=== PATIENT | female | born 1935 | race Caucasian/White ===

== ENCOUNTER 2018-10-28 13:47 | Inpatient (IN) | payer OTHER ==
[~2018-10-28] VITALS: Ht 152.4 cm; Wt 72.6 kg
[2018-10-28 13:53] VITALS: BP 145/76
--- NOTE | 2018-10-28 13:55 | NUR ---
Patient ambulated to bed 9. RN evaluating patient at bedside.
[2018-10-28] MEDS ORDERED: cefTRIAXone 1,000 MG in DEXT 5% MINI-BAG PLUS 50 ML IV ONE (14:05)
--- NOTE | 2018-10-28 14:14 | NUR ---
LAB AT BEDSIDE.
--- NOTE | 2018-10-28 14:17 | NUR ---
EMT AT BEDSIDE FOR EKG.
[2018-10-28] MEDS ORDERED: cefTRIAXone 1,000 MG VIAL ONE (14:32)
[2018-10-28 14:35] LABS: BASOPHILS % (AUTO) 0.6 % (0.0-2.0); EOSINOPHILS # (AUTO) 0.2 K/uL (0-0.4); EOSINOPHILS % (AUTO) 3.5 % (0.0-4.0); HEMATOCRIT 43.1 % (36-48); HEMOGLOBIN 14.4 g/dL (12.0-16.0); LYMPHOCYTES # (AUTO) 1.6 K/uL (2.5-16.5); LYMPHOCYTES % (AUTO) 22.9 % (20.5-51.1); MEAN CORPUSCULAR HEMOGLOBIN 31 pg (27-31); MEAN CORPUSCULAR HGB CONC 34 g/dL (33-37); MEAN CORPUSCULAR VOLUME 91.1 fL (80-94); MONOCYTES # (AUTO) 0.5 K/uL (0.8-1.0); MONOCYTES % (AUTO) 7.1 % (1.7-9.3); NEUTROPHILS # (AUTO) 4.7 K/uL (1.8-7.7); NEUTROPHILS % (AUTO) 65.9 % (42.2-75.2); PLATELET COUNT (AUTO) 237 K/uL (140-450); RED BLOOD CELL COUNT(AUTO) 4.73 MIL/uL (4.20-5.40); RED CELL DISTRIBUTION WIDTH 14.1 % (11.6-13.7); WHITE BLOOD COUNT (AUTO) 7.1 K/uL (4.8-10.8)
[2018-10-28 14:46] LABS: ANION GAP 16.7 (8-16); CARBON DIOXIDE 25.8 mmol/L (21-32); CHLORIDE 103 mmol/L (98-107); GLUCOSE 99 mg/dL (74-106); POTASSIUM 3.5 mmol/L (3.5-5.1); SODIUM SERUM 142 mmol/L (136-145); UREA NITROGEN, BLOOD 20 mg/dL (7-18)
--- NOTE | 2018-10-28 14:50 | NUR ---
PT REFFERED TO ER BY DR. JOSE M Posey C/O REDNESS TO LLE. PT DENIES PAIN, FEVER, N/V. PT REPORTS BEING ADMITTED TO [facility] ([facility] APPROX. 2 WEEKS AGO AND WAS TREATED THERE FOR CELLULITIS. PT IS ALERT AND ANSWERING QUESTIONS APPROPRIATELY. DAUGHTER IS AT BEDSIDE. BED IN LOW POSITION, SIDE RAIL UP X1
[2018-10-28 14:58] LABS: APPEARANCE,URINE CLEAR (CLEAR); BILIRUBIN,URINE NEGATIVE (NEGATIVE); BLOOD, URINE NEGATIVE (NEGATIVE); COLOR,URINE YELLOW (YELLOW); LEUKOCYTE ESTERASE ,URINE NEGATIVE (NEGATIVE); NITRITE, URINE NEGATIVE (NEGATIVE); UGLUCOSE NEGATIVE (NEGATIVE)
[2018-10-28 15:01] LABS: ALBUMIN 4.1 g/dL (3.4-5.0); ASPARTATE AMINOTRANSFERASE 22 U/L (15-37); TOTAL BILIRUBIN 0.4 mg/dL (0.0-1.0)
--- NOTE | 2018-10-28 16:10 | NUR ---
DR KIRKPATRICK AT BEDSIDE
[2018-10-28] MEDS ORDERED: FLUT1POW3 IH (16:14)
[2018-10-28] MEDS ORDERED: APIX5TAB PO (16:14)
[2018-10-28] MEDS ORDERED: METO25TE2 PO (16:14)
[2018-10-28] MEDS ORDERED: VANCOMYCIN 1GM/DEXT 5% PREMIX 200 ML IV ONE (16:15)
--- NOTE | 2018-10-28 16:30 | NUR ---
CALLED PHARMACY FOR VANCOMYCIN, PER LIZ, THEY WILL BRING IT OVER
--- NOTE | 2018-10-28 17:15 | NUR ---
Patient will be admitted to care of DR KIRK. Admited to MED SURG. Will go to room 111B . Belongings list completed. Report to NAVI MERAZ.
[2018-10-28 17:20] VITALS: BP 132/60
--- NOTE | 2018-10-28 17:20 | NUR ---
RECEIVED BEDSIDE REPORT FROM AIRCRAFT LAY OUT WORKER BARTOLO. PT STABLE, AWAKE, ALERT AND ORIENTED X4. NO SIGNS OF DISTRESS NOTED. NO REDNESS, SWELLING, OR INFLAMMATION NOTED ON IV SITE. CALL VILLAGRAN WITHIN REACH. BED IN LOWEST POSITION, BED ALARM ON. SAFETY MEASURES IN PLACE. PLAN OF CARE REVIEWED. FAMILY AT THE BEDSIDE.
--- NOTE | 2018-10-28 17:40 | NUR ---
VITAL SIGNS TAKEN, PT STABLE. MRSA SWAB DONE. WILL CONTINUE TO MONITOR.
--- NOTE | 2018-10-28 19:05 | NUR ---
REPORT RECEIVED FROM AM NURSE. PT AWAKE, ALERT AND ORIENTED. PT ABLE TO VERBALIZE NEEDS. NO C/O DISTRESS. PT ON ROOM AIR, BREATHING EQUAL AND UNLABORED. PT LEFT HAND 22G INTACT. SAFETY PRECAUTIONS IN PLACE. PT ORIENTED TO CALL LIGHT. CALL LIGHT WITHIN REACH. WILL CONTINUE TO MONITOR.
--- NOTE | 2018-10-28 19:06 | NUR ---
ENDORSED PT TO RN AUGUST FOR CONTINUITY OF CARE. PT STABLE.
--- NOTE | 2018-10-28 20:05 | NUR ---
ASSISTED PT TO THE BATHROOM. PT ABLE TO AMBULATE INDEPENDENTLY WITH STEADY GAIT. PT INSTRUCTED TO DANGLE FEET AT THE EDGE OF THE BED BEFORE STANDING UP. PT INSTRUCTED TO CALL NURSE BEFORE GETTING OUT OF BED IF PT FEELS LIGHT HEADED.
--- NOTE | 2018-10-28 21:50 | NUR ---
PT BROUGHT TURKEY SANDWICH AND APPLE SAUCE PER REQUESTED.
[2018-10-28] MEDS ORDERED: ALBUTEROL 0.083% 2.5 MG/3 ML NEBU INH PRN (22:10)
[2018-10-28] MEDS ORDERED: HYDROcodone/APAP 5/325 MG 1 TAB TAB PO PRN ×2 (22:10)
[2018-10-28] MEDS ORDERED: ONDANSETRON 4 MG/2 ML VIAL IVP PRN (22:10)
[2018-10-28] MEDS ORDERED: ACETAMINOPHEN 325 MG TAB PO PRN (22:10)
[2018-10-28] MEDS ORDERED: LORazepam 2 MG/ML VIAL IVP PRN (22:10)
[2018-10-29 00:01] VITALS: BP 136/58
--- NOTE | 2018-10-29 00:05 | NUR ---
VITAL SIGNS TAKEN. PT ASKED WHEN SHE WOULD RECEIVE HER HS MEDICATION. PT STATED THAT SHE TAKES ELIQUIS IN THE MORNING AND A SECOND DOSE OF ELIQUIS WITH METROPROLOL IN THE EVENINGS. NURSE INFORMED PT THAT MEDICATIONS ARE SCHEDULED IN THE AM. PT STATED THAT SHE TOOK HER ELIQUIS AND METROPROLOL THIS MORNING AND IT WOULD BE "OKAY NOT TO TAKE TONIGHT". PT BP 136/58, HR 69 AT THIS TIME.
--- NOTE | 2018-10-29 02:35 | NUR ---
ROUNDED ON PT. PT SLEEPING IN BED. NO VISIBLE SIGNS OF DISTRESS. WILL CONTINUE TO MONITOR.
--- NOTE | 2018-10-29 05:00 | NUR ---
ROUNDED ON PT. PT SLEEPING IN BED. NO VISIBLE SIGNS OF DISTRESS. SAFETY MEASURES IN PLACE. CALL LIGHT WITHIN REACH.
[2018-10-29 06:54] LABS: BASOPHILS % (AUTO) 0.2 % (0.0-2.0); EOSINOPHILS # (AUTO) 0.3 K/uL (0-0.4); EOSINOPHILS % (AUTO) 5.3 % (0.0-4.0); HEMATOCRIT 35.8 % (36-48); HEMOGLOBIN 11.9 g/dL (12.0-16.0); LYMPHOCYTES # (AUTO) 0.8 K/uL (2.5-16.5); LYMPHOCYTES % (AUTO) 14.1 % (20.5-51.1); MEAN CORPUSCULAR HEMOGLOBIN 30 pg (27-31); MEAN CORPUSCULAR HGB CONC 33 g/dL (33-37); MEAN CORPUSCULAR VOLUME 91.2 fL (80-94); MONOCYTES # (AUTO) 0.4 K/uL (0.8-1.0); MONOCYTES % (AUTO) 6.5 % (1.7-9.3); NEUTROPHILS # (AUTO) 4.3 K/uL (1.8-7.7); NEUTROPHILS % (AUTO) 73.9 % (42.2-75.2); PLATELET COUNT (AUTO) 203 K/uL (140-450); RED BLOOD CELL COUNT(AUTO) 3.93 MIL/uL (4.20-5.40); RED CELL DISTRIBUTION WIDTH 14.1 % (11.6-13.7); WHITE BLOOD COUNT (AUTO) 5.9 K/uL (4.8-10.8)
--- NOTE | 2018-10-29 07:10 | NUR ---
ENDORSED PT TO AM NURSE. PT STABLE AT THIS TIME.
[2018-10-29 07:11] LABS: ANION GAP 12.3 (8-16); CARBON DIOXIDE 27.1 mmol/L (21-32); CHLORIDE 107 mmol/L (98-107); CREATININE 0.8 mg/dL (0.6-1.3); GLUCOSE 94 mg/dL (74-106); POTASSIUM 4.4 mmol/L (3.5-5.1); SODIUM SERUM 142 mmol/L (136-145); UREA NITROGEN, BLOOD 16 mg/dL (7-18)
--- NOTE | 2018-10-29 07:12 | NUR ---
RECEIVED BEDSIDE REPORT FROM ELECTRONICS HARDWARE DESIGN ENGINEER RN FOR CONTINUITY OF CARE. PT IN STABLE CONDITION, AOX4, COOPERATIVE AND INTERACTING APPROPRIATELY. NO C/O PAIN AND DISCOMFORT AT THIS TIME. NO S/S DISTRESS. RESPIRATIONS EVEN AND UNLABORED. CELLULITIS LLE, MANAGER SURGERY, SKIN INTACT. PT IS AMBULATORY WITHOUT ASSIST. IV SITE PATENT AND ASYMPTOMATIC, ON SL. ALL SAFETY PRECAUTIONS IN PLACE, WILL CONTINUE TO MONITOR.
[2018-10-29 08:00] VITALS: BP 143/71
[2018-10-29] MEDS: METOPROLOL SUCCINATE 50 MG TABER PO SCH ×3 (08:56→20:36)
[2018-10-29] MEDS: APIXABAN 2.5 MG TAB PO SCH ×2 (08:57→20:38)
--- NOTE | 2018-10-29 09:17 | NUR ---
ADMINISTERED SCHEDULED MEDICATIONS. ALL NEEDS MET AT THIS TIME. VERIFIED WITH PHARMACIST THAT METOPROLOL ER MAY BE CUT TO 0.5 TABLET.
--- NOTE | 2018-10-29 09:26 | NUR ---
PATIENT HAS BEEN SCREENED AND CATEGORIZED MODERATE NUTRITION RISK. PATIENT WILL BE SEEN WITHIN 3-5 DAYS OF ADMISSION. 10/30/18-11/01/[address]
--- NOTE | 2018-10-29 11:03 | NUR ---
PATIENT RESTING IN BED. ALL NEEDS MET AT THIS TIME.
[2018-10-29] MEDS ORDERED: VANCOMYCIN PER PHARMACY MC PRN (12:45)
--- NOTE | 2018-10-29 14:23 | NUR ---
PT IN BED, NO S/S DISTRESS. ALL SAFETY PRECAUTIONS IN PLACE, WILL CONTINUE TO MONITOR.
[2018-10-29 16:00] VITALS: BP 142/65
--- NOTE | 2018-10-29 17:08 | NUR ---
PT RESTING IN BED WITH DAUGHTER AT BEDSIDE. NO C/O PAIN OR DISCOMFORT.
[2018-10-29] MEDS: VANCOMYCIN 1GM/DEXT 5% PREMIX 200 ML IV SCH (17:12)
--- NOTE | 2018-10-29 19:23 | NUR ---
ENDORSED POC TO REGISTERED NURSE STEP DOWN RN. PT IN STABLE CONDITION.
--- NOTE | 2018-10-29 19:30 | NUR ---
RECEIVED BEDSIDE REPORT FROM DAY SHIFT RN, PATIENT IN BED, ON RA, V/S TAKEN ALL STABLE. IV IN LEFT HAND SL, RED AT SITE, ASKED PATIENT IF HURT PATIENT STATED IT HURTS WHEN PRESSING ON IT, TOLD PATIENT WE MAY NEED TO CHANGE IT, PATIENT REQUESTED IF CAN CHANGE IN THE MORNING IF IT CONTINUES TO HURT, EXPLAINED TO PATIENT IF WE HAVE TO CHANGE IT SHOULD BE DONE SOON POSSIBLE, PATIENT STATED OKAY MAYBE IN THE MORNING.
--- NOTE | 2018-10-29 20:30 | NUR ---
FLUSHED IV WITH 10 ML NS, PATENT, PATIENT DENIES PAIN, WILL CONTINUE TO MONITOR
--- NOTE | 2018-10-29 22:35 | NUR ---
PATIENT RESTING IN BED ON RA, STATES IV SITE FEELS BETTER NO PAIN. CALL LIGHT WITHIN REACH WILL CONTINUE TO MONITOR
[2018-10-29 23:47] VITALS: BP 145/62
--- NOTE | 2018-10-30 00:05 | NUR ---
PATIENT SITTING IN BED WATCHING TV, DENIES PAIN, CALL LIGHT WITHIN REACH WILL CONTINUE TO MONITOR
--- NOTE | 2018-10-30 01:43 | NUR ---
PATIENT SLEEPING IN BED, CALL LIGHT WITHIN REACH, WILL CONTINUE TO MONITOR
--- NOTE | 2018-10-30 04:20 | NUR ---
SLEEPING IN BED, CALL LIGHT WITHIN REACH, WILL CONTINUE TO MONITOR
--- NOTE | 2018-10-30 06:10 | NUR ---
D/C IV IN LEFT HAND, INSERTED NEW IV IN RIGHT HAND 22 G
--- NOTE | 2018-10-30 07:15 | NUR ---
ENDORSED PATIENT TO DAY SHIFT NURSE COOPER, PATIENT STABLE.
--- NOTE | 2018-10-30 07:17 | NUR ---
RECEIVED BEDSIDE REPORT FROM SOCIAL SERVICE DIRECTOR RN SUMMER FOR CONTINUITY OF CARE. PT IN STABLE CONDITION, AOX4, COOPERATIVE AND INTERACTING APPROPRIATELY. NO C/O PAIN AND DISCOMFORT AT THIS TIME. NO S/S DISTRESS. RESPIRATIONS EVEN AND UNLABORED. CELLULITIS LLE, ERYTHEMATOUS, WARM TO TOUCH, 1+ PITTING EDEMA, NASRIN, SKIN INTACT. PT IS AMBULATORY WITHOUT ASSIST. IV SITE PATENT AND ASYMPTOMATIC, ON SL. ALL SAFETY PRECAUTIONS IN PLACE, WILL CONTINUE TO MONITOR.
[2018-10-30 07:19] LABS: ANION GAP 13.4 (8-16); CARBON DIOXIDE 25.9 mmol/L (21-32); CHLORIDE 105 mmol/L (98-107); CREATININE 0.8 mg/dL (0.6-1.3); GLUCOSE 98 mg/dL (74-106); POTASSIUM 4.3 mmol/L (3.5-5.1); SODIUM SERUM 140 mmol/L (136-145)
[2018-10-30 07:21] LABS: BASOPHILS % (AUTO) 0.5 % (0.0-2.0); EOSINOPHILS # (AUTO) 0.4 K/uL (0-0.4); EOSINOPHILS % (AUTO) 7.6 % (0.0-4.0); HEMATOCRIT 35.4 % (36-48); LYMPHOCYTES # (AUTO) 1.1 K/uL (2.5-16.5); LYMPHOCYTES % (AUTO) 19.6 % (20.5-51.1); MEAN CORPUSCULAR HEMOGLOBIN 31 pg (27-31); MEAN CORPUSCULAR HGB CONC 34 g/dL (33-37); MEAN CORPUSCULAR VOLUME 90.2 fL (80-94); MONOCYTES # (AUTO) 0.5 K/uL (0.8-1.0); MONOCYTES % (AUTO) 9.4 % (1.7-9.3); NEUTROPHILS # (AUTO) 3.4 K/uL (1.8-7.7); NEUTROPHILS % (AUTO) 62.9 % (42.2-75.2); PLATELET COUNT (AUTO) 200 K/uL (140-450); RED BLOOD CELL COUNT(AUTO) 3.92 MIL/uL (4.20-5.40); WHITE BLOOD COUNT (AUTO) 5.4 K/uL (4.8-10.8)
[2018-10-30 07:39] LABS: UREA NITROGEN, BLOOD 13 mg/dL (7-18)
[2018-10-30 08:00] VITALS: BP 157/65
[2018-10-30] MEDS: METOPROLOL SUCCINATE 50 MG TABER PO SCH ×2 (09:34→20:19)
--- NOTE | 2018-10-30 09:34 | NUR ---
OBTAINED HOME MED BREO- WILL SEND TO PHARMACY.
[2018-10-30] MEDS: APIXABAN 2.5 MG TAB PO SCH ×2 (09:35→20:28)
--- NOTE | 2018-10-30 09:40 | NUR ---
SCHEDULED MEDICATIONS ADMINISTERED. ALL NEEDS MET AT THIS TIME.
--- NOTE | 2018-10-30 11:01 | NUR ---
PT SITTING IN CHAIR, ALL SAFETY PRECAUTIONS IN PLACE, WILL CONTINUE TO MONITOR.
--- NOTE | 2018-10-30 12:25 | NUR ---
PER PHARMACIST, NO PATIENT LABEL ON BREO, NEED PATIENT LABEL AND INSTRUCTIONS. INFORMED PATIENT, SHE STATES SHE WILL CALL HER DAUGHTER TO BRING IT.
--- NOTE | 2018-10-30 13:32 | NUR ---
PATIENT STATES SHE WAS ABLE TO GET IN CONTACT WITH DAUGHTER WHO WILL BRING HOME MED BREO MEDICATION LABEL. NOTIFIED PHARMACIST OF THIS.
--- NOTE | 2018-10-30 15:51 | NUR ---
PT RESTING IN BED, NO S/S DISTRESS. WILL CONTINUE TO MONITOR.
[2018-10-30 16:00] VITALS: BP 134/62
--- NOTE | 2018-10-30 16:08 | NUR ---
DAUGHTER BROUGHT HOME MED BREO'S BOX FROM HOME. GAVE BOX WITH LABEL TO PHARMACIST.
[2018-10-30] MEDS: VANCOMYCIN 1GM/DEXT 5% PREMIX 200 ML IV SCH (17:23)
--- NOTE | 2018-10-30 19:15 | NUR ---
ENDORSED POC TO OPERATIONS TEAM LEADER RN. PT IN STABLE CONDITION.
--- NOTE | 2018-10-30 19:30 | NUR ---
RECEIVED BEDSIDE REPORT FROM DAY SHIFT RN COOPER, PATIENT IN BED, ON RA, V/S STABLE, DENIES PAIN, NOTED LEFT LEG CELLULITIS, IV IN RIGHT HAND 22 G, SL DRESSING INTACT, EXPLAIN PLAN OF CARE, CALL LIGHT WITHIN REACH, WILL CONTINUE TO MONITOR
--- NOTE | 2018-10-30 20:19 | NUR ---
DUE MEDICATIONS GIVEN, EDUCATION PROVIDED REGARDING SIDE EFFECTS
--- NOTE | 2018-10-30 21:10 | NUR ---
PATIENT TOOK SHOWER, ASSISTED BACK INTO BED, CALL LIGHT WITHIN REACH
--- NOTE | 2018-10-30 23:10 | NUR ---
PATIENT ASLEEP IN BED, CALL LIGHT WITHIN REACH, WILL CONTINUE TO MONITOR
[2018-10-31] VITALS: BP 123/53
--- NOTE | 2018-10-31 00:06 | NUR ---
ASLEEP IN BED NO SIGNS OF DISTRESS, CALL LIGHT WITHIN REACH
--- NOTE | 2018-10-31 02:10 | NUR ---
PATIENT SLEEPING IN BED, CALL LIGHT WITHIN REACH
--- NOTE | 2018-10-31 03:53 | NUR ---
PATIENT ASLEEP IN BED, NO SIGNS OF DISTRESS
--- NOTE | 2018-10-31 06:04 | NUR ---
SLEEPING, CALL LIGHT WITHIN REACH
[2018-10-31 06:45] LABS: ANION GAP 12.1 (8-16); CARBON DIOXIDE 28.1 mmol/L (21-32); CHLORIDE 105 mmol/L (98-107); CREATININE 0.8 mg/dL (0.6-1.3); GLUCOSE 91 mg/dL (74-106); POTASSIUM 4.2 mmol/L (3.5-5.1); SODIUM SERUM 141 mmol/L (136-145); UREA NITROGEN, BLOOD 17 mg/dL (7-18)
[2018-10-31 06:52] LABS: BASOPHILS % (AUTO) 0.7 % (0.0-2.0); EOSINOPHILS # (AUTO) 0.4 K/uL (0-0.4); HEMATOCRIT 35.9 % (36-48); HEMOGLOBIN 12.2 g/dL (12.0-16.0); LYMPHOCYTES # (AUTO) 1.2 K/uL (2.5-16.5); LYMPHOCYTES % (AUTO) 20.9 % (20.5-51.1); MEAN CORPUSCULAR HEMOGLOBIN 31 pg (27-31); MEAN CORPUSCULAR HGB CONC 34 g/dL (33-37); MEAN CORPUSCULAR VOLUME 90.3 fL (80-94); MONOCYTES # (AUTO) 0.6 K/uL (0.8-1.0); MONOCYTES % (AUTO) 10.1 % (1.7-9.3); NEUTROPHILS # (AUTO) 3.4 K/uL (1.8-7.7); NEUTROPHILS % (AUTO) 61.3 % (42.2-75.2); PLATELET COUNT (AUTO) 197 K/uL (140-450); RED BLOOD CELL COUNT(AUTO) 3.97 MIL/uL (4.20-5.40); RED CELL DISTRIBUTION WIDTH 13.9 % (11.6-13.7); WHITE BLOOD COUNT (AUTO) 5.6 K/uL (4.8-10.8)
--- NOTE | 2018-10-31 07:10 | NUR ---
RECEIVED BED SIDE REPORT FROM PUBLIC HEALTH TEACHER RN. PT IN STABLE CONDITION. AWAKE AND ALERT X4, IN NO RESPIRATORY DISTRESS, APPEARS IN NO PAIN, SKIN INTACT, R HAND 22G SALINE LOCK. WILL CONTINUE TO MONITOR
--- NOTE | 2018-10-31 07:11 | NUR ---
RECEIVED BED SIDE REPORT FROM CYLINDER INSPECTOR AND TESTER RN SUMMER. PT AWAKE. LEFT LEG STILL RED AND WARM BUT PEDAL PULSES PRESENT AND SKIN TEMP WARM, CAP REFILL <3 SECONDS. FINE CRACKLES HEARD ON RIGHT SIDE, LEFT SIDE CLEAR. VS STABLE. PT STATED THAT SHE WALKED TO THE BATHROOM EARLIER TO VOID. WILL CONTINUE TO MONITOR
--- NOTE | 2018-10-31 07:13 | NUR ---
ENDORSED PATIENT TO DAY SHIFT NURSE, PATIENT STABLE.
[2018-10-31 08:00] VITALS: BP 141/59
[2018-10-31] MEDS ORDERED: COMMUNICATION ORDER MC SCH (09:00)
[2018-10-31] MEDS: APIXABAN 2.5 MG TAB PO SCH ×2 (09:33→21:06)
[2018-10-31] MEDS: METOPROLOL 25 MG TAB PO SCH ×2 (09:34→21:04)
[2018-10-31] MEDS: BREO ELLIPTA PO SCH (09:34)
--- NOTE | 2018-10-31 09:51 | NUR ---
GAVE PT AM MEDS. EXPLAINED WHY PT IS TAKING MEDICATIONS AND S/E OF EACH. PT VERBALIZED UNDERSTANDING. PT ABLE TO TAKE ELLIPTA ON HER OWN.
--- NOTE | 2018-10-31 11:59 | NUR ---
PT SITTING IN CHAIR READING BOOK. WILL FAX PICC LINE CONSENT FORM LATER ON
--- NOTE | 2018-10-31 15:21 | NUR ---
Skidder Lever Operator Note: I called and spoke with Investigative Agent Victoriano Price from [facility]. I informed her of MD's home health order for abx iv. She stated they have a contract with [facility], phone number . I faxed inquiry to [facility]. MD's order for specific abx iv is still pending.
[2018-10-31 16:00] VITALS: BP 140/67
[2018-10-31] MEDS: VANCOMYCIN 1GM/DEXT 5% PREMIX 200 ML IV SCH (16:25)
--- NOTE | 2018-10-31 16:32 | NUR ---
Family Consumer Science Fcs Teacher Note: Per Nivia from [facility], phone number , they can send a nurse to patient's home tomorrow. Per Italia from [facility] , patient has a co-pay of $420. Italia stated she will contact patient's daughter Shannon Doran and discuss co-pay.
--- NOTE | 2018-10-31 18:43 | NUR ---
CONSENT FORM FAXED TO AND FORM WAS SIGNED. FORM IN CHART. CALLED PICC LINE NAVI ZAPATA 2X TO INFORM HIM THAT CONSENT FORM IS SIGNED. WILL WAIT FOR CALL BACK. FAMILY AT BEDSIDE
--- NOTE | 2018-10-31 19:19 | NUR ---
GAVE BEDSIDE REPORT TO COLLEGE SPORTS COACH RN. PT IN STABLE CONDITION
--- NOTE | 2018-10-31 19:20 | NUR ---
REPORT RECEIVED FROM AM NURSE. PT IN BED, AWAKE, ALERT AND ORIENTED. ABLE TO VERBALIZE NEEDS. PT FAMILY MEMBER AT BEDSIDE. NO IV NOTED. BED IN LOW POSITION, SAFETY MEASURES IN PLACE. CALL LIGHT WITHIN REACH. WILL CONTINUE TO MONITOR.
--- NOTE | 2018-10-31 21:55 | NUR ---
TIME OUT DONE WITH PICC RN.
--- NOTE | 2018-10-31 22:10 | NUR ---
PICC LINE PLACED BY PICC RN. PT IN STABLE CONDITION. NO C/O DISCOMFORT. CALL LIGHT WITHIN REACH. WILL CONTINUE TO MONITOR.
[2018-11-01] VITALS: BP 136/65
--- NOTE | 2018-11-01 00:01 | NUR ---
VITALS TAKEN. NO C/O DISCOMFORT.
--- NOTE | 2018-11-01 02:10 | NUR ---
ROUNDED ON PT. PT SLEEPING BUT EASILY AROUSABLE. NO C/O DISCOMFORT. CALL LIGHT WITHIN REACH.
--- NOTE | 2018-11-01 04:11 | NUR ---
ROUNDED ON PT. PT SLEEPING. NO VISIBLE SIGNS OF DISTRESS. WILL CONTINUE TO MONITOR.
--- NOTE | 2018-11-01 07:02 | NUR ---
ENDORSED PT TO AM NURSE. PT STABLE AT THIS TIME.
--- NOTE | 2018-11-01 07:03 | NUR ---
RECEIVED BEDSIDE REPORT FORM MECHANICAL DESIGN DRAFTER RN, AUGUST. PATIENT SLEEPING IN BED. NO SIGNS OF DISTRESS ON RA. SAFETY PRECAUTIONS IN PLACE.
[2018-11-01 07:04] LABS: ANION GAP 10.6 (8-16); CARBON DIOXIDE 28.4 mmol/L (21-32); CHLORIDE 105 mmol/L (98-107); CREATININE 0.8 mg/dL (0.6-1.3); GLUCOSE 91 mg/dL (74-106); SODIUM SERUM 140 mmol/L (136-145); UREA NITROGEN, BLOOD 17 mg/dL (7-18)
[2018-11-01 07:23] LABS: BASOPHILS % (AUTO) 0.6 % (0.0-2.0); EOSINOPHILS # (AUTO) 0.3 K/uL (0-0.4); EOSINOPHILS % (AUTO) 5.4 % (0.0-4.0); HEMATOCRIT 37.2 % (36-48); HEMOGLOBIN 12.6 g/dL (12.0-16.0); LYMPHOCYTES # (AUTO) 1.3 K/uL (2.5-16.5); LYMPHOCYTES % (AUTO) 20.9 % (20.5-51.1); MEAN CORPUSCULAR HEMOGLOBIN 31 pg (27-31); MEAN CORPUSCULAR HGB CONC 34 g/dL (33-37); MEAN CORPUSCULAR VOLUME 90.6 fL (80-94); MONOCYTES # (AUTO) 0.5 K/uL (0.8-1.0); MONOCYTES % (AUTO) 7.9 % (1.7-9.3); NEUTROPHILS # (AUTO) 3.9 K/uL (1.8-7.7); NEUTROPHILS % (AUTO) 65.2 % (42.2-75.2); PLATELET COUNT (AUTO) 191 K/uL (140-450)
[2018-11-01 08:00] VITALS: BP 134/58
[2018-11-01] MEDS: APIXABAN 2.5 MG TAB PO SCH (09:02)
[2018-11-01] MEDS: METOPROLOL 25 MG TAB PO SCH (09:02)
[2018-11-01] MEDS: BREO ELLIPTA PO SCH (09:03)
[2018-11-01 09:22] VITALS: BP 134/58
--- NOTE | 2018-11-01 10:45 | NUR ---
Tobacco Prevention Health Educator Note: I met with patient and patient's daughter Shannon Doran at bedside. Both stated they are eager for patient to return home and would like patient to receive today's Vanco dose at home rather than in the hospital. I provided Shannon with [facility]'s phone number and [facility] phone's number . Shannon and patient are aware home health nurse will not be able to go to patient's home daily, Shannon stated she is able to learn and assist with administering Vanco. Per patient, she has made arrangements with [facility] to pay co-pay. Per patient's nurse Dinah, patient can receive today's Vanco dose at 2:30pm today at home per patient's and Shannon's request. I informed patient and Shannon Vanco will be deliver to patient's home today and a nurse from [facility][Note 3] will be going to patient's home today at 2:30pm. I called and spoke with Grace from [facility][Note 3]. Per Grace, a nurse will be going to patient's home today at 2:30pm, Grace is aware patient prefers to receive today's Vanco dose at home rather than hospital. I called and spoke with Dinah from [facility], I informed her patient will be receiving today's Vanco dose at home at 2:30. Per Dinah, she will call patient and request for patient to contact her as soon as she knows when she is going to be home today so they can deliver medication before 2:30pm today. Patient's nurse Dinah made aware home health nurse will be going to patient's home at 2:30pm to administer Vanco today and [facility] will deliver Vanco before 2:30pm today.
--- NOTE | 2018-11-02 14:11 | NUR ---
Received phone call from Kourtney Gonzales from [facility] regarding patient. Kourtney requested fax number to Case Management department. JONI provided fax number [phone]. Kourtney stated that she would need additional clinical information for patient. JONI informed Wolfgang from and provided Kourtney's confirmation: and .
== END 2018-11-01 10:45 | disposition home health service (06) | DRG 603 ==
LOC: MED 13:47 → MTU 16:35
PROVIDERS: ADMIT Preventive Medicine Preventive Medicine/Occupational Environmental Medicine; ATTEND Preventive Medicine Preventive Medicine/Occupational Environmental Medicine
PROC: 02HV33Z Insertion of Infusion Device into Superior Vena Cava, Percutaneous Approach (ICD-10-PCS; principal; 2018-10-31)
DX: L03.116 Cellulitis of left lower limb (principal); J44.9 Chronic obstructive pulmonary disease, unspecified; I48.91 Unspecified atrial fibrillation; I10 Essential (primary) hypertension; Z88.8 Allergy status to other drugs, medicaments and biological substances; Z79.01 Long term (current) use of anticoagulants; Z90.49 Acquired absence of other specified parts of digestive tract
CPT/HCPCS: 36415; 71045; 80048; 80053; 80202; 81003; 83605; 84484; 85025; 85651; 86140; 87040; 87081; 87086; 93005; 93971; 96365; 96367; 99285; C1751; J0696; J3370; J7030; J7060; Q0092